=== PATIENT | female | born 1990 | race African-American/Black ===

== ENCOUNTER → 2016-05-25 | Outpatient (CLI) | payer OTHER ==
[~2016-05-25] MED LIST: ACET325T96 PO; PEDI1CHW82
[2016-05-25 17:37] LABS: URINE APPEARANCE CLEAR (CLEAR); URINE BILIRUBIN NEG (NEG); URINE COLOR YELLOW; URINE NITRITE NEG (NEG); URINE PH 6.5 (4.5-7.5); URINE SPECIFIC GRAVITY 1.019 (1.000-1.030); UROBILINOGEN NEG (NEG)
[2016-05-25 17:39] LABS: MANUAL MICROSCOPIC REQUIRED? NO; REVIEW REQ? NO
[2016-05-25 18:23] LABS: GTGD 50 Grams
[2016-05-27 13:26] LABS: AFP CONCENTRATION 34.1 NG/ML; AFP MULTIPLE OF MEDIAN 0.98; AFPTS GESTATIONAL AGE 15.1 WEEKS; AFPTS INSULIN DEP DIABETIC? NO; AFPTS MATERNAL WT 140 LBS; ALPHA-FETOPROTEIN RACE AFRICAN AMERICAN=B; EDD DETERMINED BY ULTRASOUND; ESTRIOL MULTIPLE OF MEDIAN 0.77; HISTORY OF NTD NO; INHIBIN A 274 PG/ML; INHIBIN A MOM 1.51; REPEAT SAMPLE? NO; hCG MULTIPLE OF MEDIAN 0.69
== END | disposition home or self-care (01) ==
LOC: C.LAB1850 15:57
PROVIDERS: ATTEND Obstetrics & Gynecology
DX: Z34.81 Encounter for supervision of other normal pregnancy, first trimester (principal)

== ENCOUNTER → 2016-08-25 | Outpatient (CLI) | payer OTHER ==
[2016-08-25 12:32] LABS: HEMATOCRIT 29.4 % (37-47)
[2016-08-25 19:53] LABS: GTGD 50 Grams
== END ==
LOC: C.LAB1850 10:16
PROVIDERS: ATTEND Obstetrics & Gynecology
DX: Z34.83 Encounter for supervision of other normal pregnancy, third trimester (principal)

== ENCOUNTER → 2016-08-25 | Outpatient (CLI) | payer OTHER ==
[2016-08-25 14:58] LABS: URINE APPEARANCE CLEAR (CLEAR); URINE BILIRUBIN NEG (NEG); URINE COLOR YELLOW; URINE EPITHELIAL CELL AUTO >30 /lpf (0-5); URINE NITRITE NEG (NEG); URINE SPECIFIC GRAVITY 1.021 (1.000-1.030); UROBILINOGEN NEG (NEG)
[2016-08-25 15:07] LABS: MANUAL MICROSCOPIC REQUIRED? NO; REVIEW REQ? NO
== END ==
LOC: C.LABSPEC 13:28
PROVIDERS: ATTEND Obstetrics & Gynecology
DX: Z34.83 Encounter for supervision of other normal pregnancy, third trimester (principal)

== ENCOUNTER → 2016-10-20 | Outpatient (CLI) | payer SELFPAY | END | disposition home or self-care (01) | LOC: C.LABSPEC 16:52 | PROVIDERS: ATTEND Obstetrics & Gynecology | DX: Z34.83 Encounter for supervision of other normal pregnancy, third trimester (principal) ==

== ENCOUNTER → 2016-10-27 | Outpatient (CLI) | payer OTHER | END | disposition home or self-care (01) | LOC: C.LABSPEC 13:43 | PROVIDERS: ATTEND Obstetrics & Gynecology | DX: Z34.83 Encounter for supervision of other normal pregnancy, third trimester (principal) ==

== ENCOUNTER 2019-11-27 08:39 | Inpatient (IN) ==
[2019-11-27] MEDS ORDERED: LACTATED RINGER'S 1,000 ML IV PRN (09:00)
[2019-11-27] MEDS ORDERED: OXYTOCIN 30 UNITS/500 ML BAG IV PRN ×2 (09:00→11:54)
[2019-11-27 09:43] LABS: Hematocrit (blood only) 36.5 % (37-47); Hemoglobin 12.2 g/dL (12.0-16.0); Mean Corpuscular Hemoglobin 30.1 pg (25-34); Mean Corpuscular Volume 90.1 fL (80-100); Mean Platelet Volume 11.2 fL (7.4-10.4); Platelet Count 162 K/uL (130-400); RDW Coefficient of Variation 15.7 % (11.5-14.5); RDW Standard Deviation 51.7 fL (36.4-46.3); Red Blood Count 4.05 M/uL (4.2-5.4); White Blood Count 9.08 K/uL (4.8-10.8)
[2019-11-27 09:45] LABS: Mean Corpuscular Hgb Conc 33.4 g/dL (32-36)
[2019-11-27] MEDS ORDERED: OXYCODONE/ACETAMINOPHEN 5mg/325mg TAB PO PRN (11:54)
[2019-11-27] MEDS ORDERED: BENZOCAINE 20% AER SPR 82.5 GM CAN EXT PRN (11:54)
[2019-11-27] MEDS ORDERED: bisacodyL 10 MG SUPP PR PRN (11:54)
[2019-11-27] MEDS ORDERED: ACETAMINOPHEN 325 MG TAB PO PRN (11:54)
[2019-11-27] MEDS ORDERED: SUPERCREAM 0.870% 15 GM JAR EXT PRN (11:54)
[2019-11-27] MEDS ORDERED: DIPHTHERIA/TETANUS/PERTUSSIS 0.5 ML SYR/VIAL IM ONE (11:54)
[2019-11-27] MEDS ORDERED: ACETAMINOPHEN W/CODEINE #3 1 TAB PO PRN (11:54)
[2019-11-27] MEDS ORDERED: HYDROCORTISONE ACETATE 25 MG SUPP PR PRN (11:54)
[2019-11-27] MEDS: IBUPROFEN 600 MG TAB PO PRN ×3 (12:47→23:39)
--- NOTE | 2019-11-27 14:10 | Delivery Summary ---
DATE OF OPERATION: 11/27/2019 Mrs. Lopez is followed in our office for care and delivery. She is a 4, para 3, blood type is A positive. She was admitted in active labor at 38 weeks and 6 days. On admission, her membranes were bulging. She was leaking amniotic fluid. She had a spontaneous unstimulated labor without any pain medicine, went to full dilatation, pushed out a live female via direct occiput anterior position. After she delivered the head we had some difficulty delivering the shoulders. We had to encourage her to push. She did not push very effectively, but the baby's left hand was right by its face, so I grabbed the hand with a towel, pulled the arm out over the perineum. I then delivered the rest of the with mild to moderate difficulty. Following this, cord was clamped, cut by the father. We did wait 1 full minute for the cord to pulse before cutting it. After cutting it I retrieved cord blood With IV Pitocin running, the placenta was removed intact. Inspection of the perineum revealed no lacerations. The patient tolerated the procedure well. Apgars were good; the exact numbers will be deferred to the nurses. Estimated blood loss was under 100 mL. I attest to the content of the Intraoperative Record and any orders documented therein. Any exception s are noted below.
[2019-11-27] MEDS: DOCUSATE SODIUM 100 MG CAP PO SCH (21:40)
[2019-11-28 06:29] LABS: Hematocrit (blood only) 33.7 % (37-47); Hemoglobin 11.3 g/dL (12.0-16.0); Mean Corpuscular Hemoglobin 30.4 pg (25-34); Mean Corpuscular Hgb Conc 33.5 g/dL (32-36); Mean Corpuscular Volume 90.6 fL (80-100); Mean Platelet Volume 11.3 fL (7.4-10.4); Platelet Count 171 K/uL (130-400); RDW Coefficient of Variation 15.7 % (11.5-14.5); RDW Standard Deviation 52.2 fL (36.4-46.3); Red Blood Count 3.72 M/uL (4.2-5.4); White Blood Count 13.97 K/uL (4.8-10.8)
[2019-11-28] MEDS: IBUPROFEN 600 MG TAB PO PRN ×2 (06:39→15:41)
[2019-11-28] MEDS: DOCUSATE SODIUM 100 MG CAP PO SCH (07:43)
[2019-11-28] MEDS ORDERED: PRENATAL VITAMIN 1 TAB PO SCH (08:00)
--- NOTE | 2019-11-28 09:00 | Obstetrical Progress Note ---
Date of Service November 28, 2019 Assessment & Plan Admission and Anticipated Discharge Date Admission Date: November 27, 2019 Physical Exam Physical Exam: abdomen soft and non tender no calf tenderness ambulating well vaginal bleeding scant hgb 11.3 requesting discharge Results & Data ([facility]) Vital Signs (Past 12 Hours) Vital Signs Temp Pulse Resp BP Pulse Ox 11/28/19 03:45 36.5 C 72 20 113/72 99 11/28/19 00:15 36.8 C 11/27/19 23:00 36.7 C 71 20 114/71 99
[2019-11-28] MEDS ORDERED: bisacodyL 5 MG TABEC PO SCH (20:00)
== END 2019-11-28 16:59 | disposition home or self-care (01) | DRG 807 ==
LOC: OPB 08:39 → 4S1 08:41 → 4S2 16:15